=== PATIENT | male | born 1945 ===

== ENCOUNTER 2022-12-09 17:07 | Observation (INO) ==
--- NOTE | 2022-12-09 17:24 | ED Triage Note ---
Date of Service December 09, 2022 History of Present Illness This patient was briefly evaluated while in triage. An abbreviated physical exam was performed. This patient is a 77-year-old Male with past medical history of hypertension and hypercholesterolemia who presents to the ED for evaluation of confusion and mild dizziness that started at midday. reports the patient has also had some other coordination issues as well, for example opening jars. There is a family history of CVA, the patient has not had any prior neurologic history. The patient did leave the house to go to get something, however got lost. Family has not noticed any slurred speech. Patient has no recollection of history this morning. Physical Exam CONSTITUTIONAL: Healthy and well nourished. Patient is alert to current situation. HEENT: Normocephalic, atraumatic. RESPIRATORY: Clear to auscultation bilaterally with no wheezing, crackles, rhonchi or stridor. CARDIOVASCULAR: Regular rate and rhythm with no murmurs, rubs or gallops. INTEGUMENTARY: No rash or other significant dermatologic conditions noted. HEMATOLOGIC: No ecchymosis or petechiae. PSYCHIATRIC: Positive affect. NEUROLOGIC: No focal neurologic deficits noted. No ataxia with ambulation Initial orders for labs and / or imaging were placed and patient was placed in the waiting area until a bed is available. Please see further documentation for the full ED course.
[2022-12-09 18:12] LABS: Basophils # (auto) 0.05 K/uL (0-0.2); Basophils % (auto) 0.7 %; Eosinophils # (auto) 0.17 K/uL (0-0.50); Eosinophils % (auto) 2.4 %; Hematocrit (blood only) 41.1 % (42.0-52.0); Hemoglobin 13.6 g/dl (14.0-18.0); Immature Granulocytes # (auto) 0.01 K/uL (0.01-0.20); Immature Granulocytes % (auto) 0.1 %; Lymphocytes # (auto) 2.36 K/uL (1.2-3.4); Lymphocytes % (auto) 33.1 %; Mean Corpuscular Hemoglobin 29.2 pg (25.0-34.0); Mean Corpuscular Hgb Conc 33.1 g/dL (32.0-36.0); Mean Corpuscular Volume 88.4 fL (80.0-100.0); Mean Platelet Volume 9.1 fL (9.4-12.4); Monocytes # (auto) 0.48 K/uL (0.11-0.59); Monocytes % (auto) 6.7 %; Neutrophils # (auto) 4.06 K/uL (1.40-6.50); Platelet Count 329 K/uL (130-400); RDW Coefficient of Variation 12.9 % (11.5-14.5); RDW Standard Deviation 41.9 fL (36.4-46.3); Red Blood Count 4.65 M/uL (4.70-6.10); White Blood Count 7.13 K/ul (4.8-10.8)
[2022-12-09 19:04] LABS: Albumin Level 4.6 gm/dl (3.4-5.0); Bilirubin,Total 1.2 mg/dl (0.2-1.0); Magnesium 2.3 mg/dl (1.7-2.4); Potassium 4.3 mmol/L (3.5-5.1)
[2022-12-09 19:07] LABS: Albumin Globulin Ratio 1.5 (0.9-2); Globulin 3.1 gm/dl (2.5-4.0)
[2022-12-09 19:08] LABS: BUN Creatinine Ratio 12.8 (10-20); Creatinine Clr Calc Pharmacy 40.8 ml/min; Est GFR (African American) 64.4 ml/min; Est GFR (Non-African American) 55.6 ml/min; Total Protein 7.7 gm/dl (6.0-8.3)
--- NOTE | 2022-12-09 19:26 | CT Scan Report ---
CT SCAN OF THE BRAIN WITHOUT IV CONTRAST CLINICAL HISTORY: Change in mental status. COMPARISON STUDY: No priors. TECHNIQUE: Unenhanced axial CT scan of the brain is performed from the vertex to the skull base. A do se lowering technique was utilized adhering to the principles of ALARA. CT DOSE: 614.27 mGy.cm FINDINGS: Brain parenchyma: There is age-related involutional change noting moderate subcortical and periventri cular microangiopathic disease. There is no hemorrhage, mass effect, or evidence of acute territorial ischemia by CT criteria. Blanchard-white matter differentiation is preserved. No extra-axial fluid collec tion is seen. Ventricles, sulci, cisterns: Prominent secondary to involutional change. Intracranial vasculature: There is atherosclerotic calcification of the cavernous carotid and vertebr al arteries. Calvarium: Unremarkable. Sinuses and mastoids: The visualized paranasal sinuses are clear. There is trace right mastoid effusi on. The left mastoid air cells are well pneumatized. Orbits: The bony orbits are grossly intact. There are bilateral ocular lens implants. IMPRESSION: There is no hemorrhage, mass effect, or evidence of acute territorial ischemia by CT shimon dennis. ACT 112: Negative or not required by law. Electronically signed by: Ender Mills M.D. 12/09/2022 7:25 PM
[2022-12-09] MEDS: SODIUM CHLORIDE 0.9% 1000ML 1,000 ML IV SCH (20:22)
[2022-12-09] MEDS ORDERED: OPTIRAY 320 500ml IV ONE (20:28)
--- NOTE | 2022-12-09 20:41 | XRay Report ---
SINGLE VIEW CHEST CLINICAL HISTORY: Generalized weakness. FINDINGS: 2 AP, portable, upright chest radiographs are obtained. No prior studies are available for comparison at the time of dictation. The examination is degraded by portable technique and patient ro tation. A hiatal hernia is noted. The cardiomediastinal silhouette is top normal for projection. The lungs and pleural spaces are clear. No pneumothorax is seen. The skeletal structures are osteopenic. The bony thorax is grossly intact. IMPRESSION: No active disease in the chest. ACT 112: Negative or not required by law. Electronically signed by: Ender Mills M.D. 12/09/2022 8:40 PM
--- NOTE | 2022-12-09 21:04 | CT Scan Report ---
CT ANGIOGRAM OF THE BRAIN; CT ANGIOGRAM OF THE NECK CLINICAL HISTORY: Change in mental status. Stroke like symptoms. COMPARISON STUDY: Unenhanced CT of the brain performed the same day 12/09/2022. TECHNIQUE: Follow-up the IV administration of 109 of Optiray 320, CT angiogram of the head and neck w as performed from the aortic arch to the vertex. Images are reviewed in the axial, sagittal, and [place] nal planes. 3-D MIPS images are created and assessed. IV contrast was administered without complicati on. All measurements were calculated based on NASCET criteria. A dose lowering technique was utilize d adhering to the principles of ALARA. CT DOSE: 537.39 mGy.cm FINDINGS: Brain parenchyma: There is age related involutional change noting moderate subcortical and periventri cular microangiopathic disease. There is no evidence of hemorrhage, mass effect, or acute territorial ischemia noting angiographic phase technique. There is no evidence of enhancing mass lesion on the a ngiogram phase images. The ventricles, sulci, and cisterns are prominent secondary to involutional ch jackie. Blanchard-white matter differentiation is preserved. No extra-axial fluid collection is seen. Thoracic aorta: Visualized portions of the thoracic aorta are normal in caliber. The aortic arch demo nstrates standard 3-vessel anatomy. Right carotid arterial system: The right common carotid artery is widely patent, as are the right int ernal and external carotid arteries. Calcified plaque is noted in the carotid bulb. Left carotid arterial system: The left common carotid artery is widely patent, as are the left wedding planning internship al and external carotid arteries. Minimal calcified plaque is seen in the carotid bulb. Vertebral arteries: The vertebral arteries are widely patent bilaterally and codominant. Subclavian arteries: Widely patent bilaterally. Intracranial vasculature: There is atherosclerotic calcification of the cavernous carotid and vertebr al arteries. The internal carotid arteries are patent at the skull base, as are the anterior and midd le cerebral arteries bilaterally. The vertebrobasilar system and posterior cerebral arteries are wide ly patent. The vertebral arteries are codominant. There is no aneurysm, high-grade stenosis, or focal vessel cut off seen throughout the intracranial circulation. Jugular veins: Patent bilaterally. Dural sinuses: Patent. Lung apices: Partially visualized upper lobe lung parenchyma appears clear. Soft tissues: The visualized pharyngeal soft tissues are normal in appearance noting angiographic pha se technique. The oropharyngeal airway appears widely patent. The salivary and thyroid glands are nor mal in appearance. No cervical lymphadenopathy is seen. Skeletal structures: The skeletal structures are osteopenic. The calvarium appears intact. The cervic al spine is maintained noting multilevel spondylosis. No lytic or blastic lesion is seen. Orbits: The bony orbits are intact. Orbital contents are normal as visualized noting bilateral ocular lens implants. Sinuses and mastoids: The paranasal sinuses are clear. There is trace right mastoid effusion. The lef t mastoid air cells are well pneumatized. IMPRESSION: 1. There is no evidence of hemorrhage, mass effect, or acute territorial ischemia noting angiographic phase technique. 2. Unremarkable CT angiogram of the brain. 3. Unremarkable CT angiogram of the neck. ACT 112: Negative or not required by law. Electronically signed by: Ender Mills M.D. 12/09/2022 9:02 PM
--- NOTE | 2022-12-09 21:35 | Emergency Department Note ---
Impression & Plan Acute confusion, Memory loss ED Provider Note ED Provider Note NAME: KALA LOUIS AGE:77 SEX: Male : 1945 ARRIVES VIA: Private vehicle INFORMANT: Patient ED PROVIDER(s): Alysha Drake DO CHIEF COMPLAINT: Acute confusion and memory loss HPI: This is a 77-year-old male presents emerged part with at bedside due to acute confusion and memory loss that began earlier today around noon. No prior similar episodes. and patient state no other obvious signs of a stroke such as facial droop, slurred speech, limb weakness, or trouble walking. Patient denies noting any pain, headaches, dizziness, or change in appetite. No recent change in medications. 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 He states today he had gone out to buy his avendano and forgot where he was going and how to get there and so he turned around and came home. states he was upset by this episode. No prior similar events. No history of TIA/CVA. PAST MEDICAL HISTORY:See Below PAST SURGICAL HISTORY:See Below FAMILY HISTORY:See Below SOCIAL HISTORY:See Below HOME MEDICATIONS:See Below ALLERGIES:See Below VITALS:See Below PHYSICAL EXAMINATION: GENERAL: alert, well appearing, well nourished, no distress, non-toxic EYE EXAM: normal conjunctiva, PERRL and EOM's grossly intact OROPHARYNX: no exudate, no erythema, lips, buccal mucosa, and tongue normal and mucous membranes are moist NECK: supple, no nuchal rigidity, no adenopathy, non-tender LUNGS: Clear to auscultation. Normal chest wall mechanics, no w/r/r HEART: no murmurs, S1 normal and S2 normal ABDOMEN: abdomen soft, non-tender, normo-active bowel sounds, no masses, no rebound or guarding. BACK: Back is symmetrical on inspection and there is no deformity, no midline tenderness, no CVA tenderness. SKIN: no rashes, petechiae, orbruising UPPER EXTREMITIES: upper extremities are grossly normal. FROM, nml pulses b/l. LOWER EXTREMITIES: No pitting edema. FROM, nml pulses b/l. NEURO EXAM: Normal sensorium but confusion to recent chronology of events, cranial nerves II-XII grossly intact, normal speech, no facial droop,nogross weakness of arms, no gross weakness of legs. Gross sensation intact. No ataxia. Vital Signs: reviewed and remarkable Differential Diagnosis: CVA, TIA, occult infection, JIAN, dehydration, trauma, electrolyte abnormality, ACS, dysrhythmia, TGA, medication adr, as well as others were considered MEDICAL DECISION MAKING: This is a 77 yo male who presents due to acute confusion and memory loss. Protocol orders started by nursing staff while patient still in triage. Once I evaluated the patient in a room, additional labs and imaging were added. He was afebrile and VS stable. CT/CTA reassuring as were labs. These were discussed with the patient and at bedside. GIven patient still confused, and concern for neurologic event not otherwise seen on CT, we discussed additional inpatient evaluation. No ectopy or dysrhythmia noted on tele. No evidence of occult infection. No worsening or evolving symptoms. CAse discussed with hospitalist. Consultation(s): 2149: DIscussed with Dr. Knight. ER Treatment Provided: See below Diagnostics Interpreted By Me: -ECG: NSR at 94, nml axis, nml intervals, no acute ST/T wave changes. -Cardiac Monitoring: An order was placed for continuous cardiac monitoring. The monitor shows a rate of 97 with normal sinus rhythm. -Laboratory studies: As stated above and show below. -Imaging studies: [] Triage Nursing Note Reviewed Prior/Outside Records Reviewed Procedures: [] Critical Care: [] Past Med/Surg History Medical History (Updated 12/10/22 @ 14:35 by Alysha Drake DO) Dyslipidemia Hypertension Pre-diabetes Surgical History (Updated 12/10/22 @ 07:59 by Regan Almeida MD) History of cataract surgery Family History (Updated 12/10/22 @ 09:23 by Regan Almeida MD) Mother , age 86 with dementia Stroke Dementia Father , age 66 of heart disease Coronary heart disease Heart disease Social History Smoking Status: Former smoker Tobacco Type: Cigarettes Age Started Using Tobacco: 18; Age Quit Using Tobacco: 33; packs per day: 1; Second Hand Exposure: No; Hx Alcohol Use: No Hx Substance Use: No Preferred Language: Prydeinig Communication Ability: Effective Frameman Required: Yes Beliefs That Will Affect Care: None Current Living Situation: Spouse Current Living Situation Comment: lives in a one story home current occupational status: retired 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 Feels Safe at Home: Yes Assistive Devices: None Allergies Allergies Allergy/AdvReac Type Severity Reaction Status Date / Time lisinopril Allergy FACE EDEMA Verified 12/10/22 01:16 Home Meds Home Medications Medication Instructions Recorded Confirmed amlodipine 10 mg tablet 10 mg PO DAILY 12/09/22 12/09/22 simvastatin 20 mg tablet 20 mg PO DAILY 12/09/22 12/09/22 Previous Rx's Medication Instructions Recorded clopidogrel 75 mg tablet 75 mg PO DAILY #30 tabs 12/10/22 Results & Data (ED) Vital Signs Vital Signs - 24 hr 12/09/22 17:20 12/09/22 19:48 12/09/22 19:48 Temperature 36.4 C L Temperature Source Temporal Artery Scan Pulse Rate 109 H Pulse Rate [Apical] 96 H Pulse Rhythm Regular Respiratory Rate 16 16 Respiratory Effort / Characteristics Non-Labored Spontaneous Respiratory Depth Normal Blood Pressure 120/82 Blood Pressure [Right Arm] 144/92 H Blood Pressure Mean 94 Blood Pressure Mean [Right Arm] 109 Pulse Oximetry 97 98 Oxygen Delivery Method Room Air Room Air Sepsis Recent Fever Within 48 Hours No Sepsis New/Unexplained Change in Mental Status No Sepsis Action Taken by Nursing No Action Required 12/09/22 20:24 12/09/22 20:24 12/09/22 22:05 Temperature Temperature Source Pulse Rate Pulse Rate [Apical] 79 81 Pulse Rhythm Respiratory Rate 20 20 Respiratory Effort / Characteristics Non-Labored Respiratory Depth Normal Blood Pressure Blood Pressure [Right Arm] 147/95 H 136/86 Blood Pressure Mean Blood Pressure Mean [Right Arm] 112 102 Pulse Oximetry 97 97 Oxygen Delivery Method Room Air Room Air Room Air Sepsis Recent Fever Within 48 Hours Sepsis New/Unexplained Change in Mental Status Sepsis Action Taken by Nursing Laboratory Data 12/09/22 17:40 12/09/22 17:40 Lab Results 12/09/22 12/09/22 12/09/22 Range/Units 17:40 17:40 17:40 WBC 7.13 (4.8-10.8) K/ul RBC 4.65 L (4.70-6.10) M/uL Hgb 13.6 L (14.0-18.0) g/dl Hct 41.1 L (42.0-52.0) % MCV 88.4 (80.0-100.0) fL MCH 29.2 (25.0-34.0) pg MCHC 33.1 (32.0-36.0) g/dL RDW Std Deviation 41.9 (36.4-46.3) fL RDW Coeff of Best 12.9 (11.5-14.5) % Plt Count 329 (130-400) K/uL MPV 9.1 L (9.4-12.4) fL Immature Gran % (Auto) 0.1 % Neut % (Auto) 57.0 % Lymph % (Auto) 33.1 % Upton % (Auto) 6.7 % Eos % (Auto) 2.4 % Baso % (Auto) 0.7 % Neut # (Auto) 4.06 (1.40-6.50) K/uL Lymph # (Auto) 2.36 (1.2-3.4) K/uL Upton # (Auto) 0.48 (0.11-0.59) K/uL Eos # (Auto) 0.17 (0-0.50) K/uL Baso # (Auto) 0.05 (0-0.2) K/uL Immature Gran # (Auto) 0.01 (0.01-0.20) K/uL PT Cancelled INR Cancelled Sodium 141 (136-145) mmol/L Potassium 4.3 (3.5-5.1) mmol/L Chloride 105 (98-107) mmol/L Carbon Dioxide 29 (21-32) mmol/L Anion Gap 7 (3-11) BUN 16 (6-23) mg/dl Creatinine 1.25 (0.6-1.4) mg/dl Est Cr Clr Drug Dosing 40.8 ml/min Est GFR ( Amer) 64.4 ml/min Est GFR (Non-Af Amer) 55.6 ml/min BUN/Creatinine Ratio 12.8 (10-20) Glucose 111 H (70-99(Fasting)) mg/dl Calcium 10.0 (8.5-10.1) mg/dl Magnesium 2.3 (1.7-2.4) mg/dl Total Bilirubin 1.2 H (0.2-1.0) mg/dl AST 21 (13-39) U/L ALT 11 (7-52) U/L Alkaline Phosphatase 80 (34-104) U/L Troponin I High Sens (0-20) pg/ml Total Protein 7.7 (6.0-8.3) gm/dl Albumin 4.6 (3.4-5.0) gm/dl Globulin 3.1 (2.5-4.0) gm/dl Albumin/Globulin Ratio 1.5 (0.9-2) TSH (0.300-4.500) uIu/ml Urine Color Urine Appearance (Clear) Urine pH (4.5-7.5) Ur Specific Robson (1.000-1.030) Urine Protein (Negative) Urine Glucose (UA) (Negative) Urine Ketones (Negative) Urine Blood (Negative) Urine Nitrite (Negative) Urine Bilirubin (Negative) Urine Urobilinogen (Negative) Ur Leukocyte Esterase (Negative) Lyme Disease IgG Ab (Negative) Lyme Disease IgM Ab (Negative) SARS-CoV-2, RNA, NAAT (NEGATIVE) 12/09/22 12/09/22 12/09/22 Range/Units 17:40 17:40 17:40 WBC (4.8-10.8) K/ul RBC (4.70-6.10) M/uL Hgb (14.0-18.0) g/dl Hct (42.0-52.0) % MCV (80.0-100.0) fL MCH (25.0-34.0) pg MCHC (32.0-36.0) g/dL RDW Std Deviation (36.4-46.3) fL RDW Coeff of Best (11.5-14.5) % Plt Count (130-400) K/uL MPV (9.4-12.4) fL Immature Gran % (Auto) % Neut % (Auto) % Lymph % (Auto) % Upton % (Auto) % Eos % (Auto) % Baso % (Auto) % Neut # (Auto) (1.40-6.50) K/uL Lymph # (Auto) (1.2-3.4) K/uL Upton # (Auto) (0.11-0.59) K/uL Eos # (Auto) (0-0.50) K/uL Baso # (Auto) (0-0.2) K/uL Immature Gran # (Auto) (0.01-0.20) K/uL PT INR Sodium (136-145) mmol/L Potassium (3.5-5.1) mmol/L Chloride (98-107) mmol/L Carbon Dioxide (21-32) mmol/L Anion Gap (3-11) BUN (6-23) mg/dl Creatinine (0.6-1.4) mg/dl Est Cr Clr Drug Dosing ml/min Est GFR ( Amer) ml/min Est GFR (Non-Af Amer) ml/min BUN/Creatinine Ratio (10-20) Glucose (70-99(Fasting)) mg/dl Calcium (8.5-10.1) mg/dl Magnesium (1.7-2.4) mg/dl Total Bilirubin (0.2-1.0) mg/dl AST (13-39) U/L ALT (7-52) U/L Alkaline Phosphatase (34-104) U/L Troponin I High Sens 4.8 (0-20) pg/ml Total Protein (6.0-8.3) gm/dl Albumin (3.4-5.0) gm/dl Globulin (2.5-4.0) gm/dl Albumin/Globulin Ratio (0.9-2) TSH 1.718 (0.300-4.500) uIu/ml Urine Color Urine Appearance (Clear) Urine pH (4.5-7.5) Ur Specific Robson (1.000-1.030) Urine Protein (Negative) Urine Glucose (UA) (Negative) Urine Ketones (Negative) Urine Blood (Negative) Urine Nitrite (Negative) Urine Bilirubin (Negative) Urine Urobilinogen (Negative) Ur Leukocyte Esterase (Negative) Lyme Disease IgG Ab Negative (Negative) Lyme Disease IgM Ab Negative (Negative) SARS-CoV-2, RNA, NAAT (NEGATIVE) 12/09/22 12/09/22 12/09/22 Range/Units 21:01 21:40 22:03 WBC (4.8-10.8) K/ul RBC (4.70-6.10) M/uL Hgb (14.0-18.0) g/dl Hct (42.0-52.0) % MCV (80.0-100.0) fL MCH (25.0-34.0) pg MCHC (32.0-36.0) g/dL RDW Std Deviation (36.4-46.3) fL RDW Coeff of Best (11.5-14.5) % Plt Count (130-400) K/uL MPV (9.4-12.4) fL Immature Gran % (Auto) % Neut % (Auto) % Lymph % (Auto) % Upton % (Auto) % Eos % (Auto) % Baso % (Auto) % Neut # (Auto) (1.40-6.50) K/uL Lymph # (Auto) (1.2-3.4) K/uL Upton # (Auto) (0.11-0.59) K/uL Eos # (Auto) (0-0.50) K/uL Baso # (Auto) (0-0.2) K/uL Immature Gran # (Auto) (0.01-0.20) K/uL PT 11.3 INR 1.1 Sodium (136-145) mmol/L Potassium (3.5-5.1) mmol/L Chloride (98-107) mmol/L Carbon Dioxide (21-32) mmol/L Anion Gap (3-11) BUN (6-23) mg/dl Creatinine (0.6-1.4) mg/dl Est Cr Clr Drug Dosing ml/min Est GFR ( Amer) ml/min Est GFR (Non-Af Amer) ml/min BUN/Creatinine Ratio (10-20) Glucose (70-99(Fasting)) mg/dl Calcium (8.5-10.1) mg/dl Magnesium (1.7-2.4) mg/dl Total Bilirubin (0.2-1.0) mg/dl AST (13-39) U/L ALT (7-52) U/L Alkaline Phosphatase (34-104) U/L Troponin I High Sens (0-20) pg/ml Total Protein (6.0-8.3) gm/dl Albumin (3.4-5.0) gm/dl Globulin (2.5-4.0) gm/dl Albumin/Globulin Ratio (0.9-2) TSH (0.300-4.500) uIu/ml Urine Color Yellow Urine Appearance Clear (Clear) Urine pH 7.5 (4.5-7.5) Ur Specific Robson 1.032 H (1.000-1.030) Urine Protein Negative (Negative) Urine Glucose (UA) Negative (Negative) Urine Ketones Negative (Negative) Urine Blood Negative (Negative) Urine Nitrite Negative (Negative) Urine Bilirubin Negative (Negative) Urine Urobilinogen Negative (Negative) Ur Leukocyte Esterase Negative (Negative) Lyme Disease IgG Ab (Negative) Lyme Disease IgM Ab (Negative) SARS-CoV-2, RNA, NAAT NEGATIVE (NEGATIVE) Administered Medications Discontinued Medications Amlodipine Besylate (Amlodipine Besylate 5 Mg Tab) 10 mg PO DAILY DULCE Stop: 01/09/23 08:59 Last Admin: 12/10/22 08:53 Dose: 10 mg Documented By: GIANLUCA Aspirin (Aspirin Chew 324 Mg) 324 mg PO NOW STA Stop: 12/09/22 21:54 Last Admin: 12/09/22 22:04 Dose: 324 mg Documented By: CAMMIE Aspirin (Aspirin 81 Mg Ectab) 81 mg PO DAILY DULCE Stop: 01/09/23 08:59 Last Admin: 12/10/22 08:53 Dose: 81 mg Documented By: GIANLUCA Heparin Sodium (Porcine) (Heparin Sod 5,000 Unit/0.5 Ml Vial) 5,000 units SQ Q8 DULCE Stop: 01/09/23 05:59 Last Admin: 12/10/22 06:03 Dose: Not Given Documented By: MINDY Sodium Chloride (Nss 1000ml) 1,000 mls @ 125 mls/hr IV .Q8H [facility] Stop: 01/08/23 20:14 Last Infusion: 12/10/22 06:03 Dose: 0 mls/hr Documented By: Admin: 12/10/22 06:02 Dose: Not Given Documented By: Admin: 12/09/22 20:22 Dose: 125 mls/hr Documented By: CAMMIE Influenza Virus Vaccine (Influenza Vaccine High Dose Pf 65+ 0.7 Ml Syr) 0.7 ml IM .ONCE ONE Stop: 12/10/22 09:01 Last Admin: 12/10/22 10:26 Dose: Not Given Documented By: GIANLUCA Ioversol (Optiray 320 500ml) 109 ml IV ONCE ONE Stop: 12/09/22 20:29 Last Admin: 12/09/22 20:30 Dose: 109 ml Documented By: JUANY Simvastatin (Simvastatin 20 Mg Tab) 20 mg PO DAILY [facility] Stop: 01/09/23 08:59 Last Admin: 12/10/22 08:53 Dose: 20 mg Documented By: CB Imaging Data Radiologist's Impression: Chest X-Ray 12/09/22 17:24 SINGLE VIEW CHEST CLINICAL HISTORY: Generalized weakness. FINDINGS: 2 AP, portable, upright chest radiographs are obtained. No prior studies are available for comparison at the time of dictation. The examination is degraded by portable technique and patient rotation. A hiatal hernia is noted. The cardiomediastinal silhouette is top normal for projection. The lungs and pleural spaces are clear. No pneumothorax is seen. The skeletal structures are osteopenic. The bony thorax is grossly intact. IMPRESSION: No active disease in the chest. ACT 112: Negative or not required by law. Electronically signed by: Ender Mills M.D. 12/09/2022 8:[address] 12/09/22 17:24 CT SCAN OF THE BRAIN WITHOUT IV CONTRAST CLINICAL HISTORY: Change in mental status. COMPARISON STUDY: No priors. TECHNIQUE: Unenhanced axial CT scan of the brain is performed from the vertex to the skull base. A dose lowering technique was utilized adhering to the pr inciples of ALA. CT DOSE: 614.27 mGy.cm FINDINGS: Brain parenchyma: There is age-related involutional change noting moderate subcortical and periventricular microangiopathic disease. There is no hemorrhage, mass effect, or evidence of acute territorial ischemia by CT criteria. Blanchard-white matter differentiation is preserved. No extra-axial fluid collection is seen. Ventricles, sulci, cisterns: Prominent secondary to involutional change. Intracranial vasculature: There is atherosclerotic calcification of the cavernous carotid and vertebral arteries. Calvarium: Unremarkable. Sinuses and mastoids: The visualized paranasal sinuses are clear. There is trace right mastoid effusion. The left mastoid air cells are well pneumatized. Orbits: The bony orbits are grossly intact. There are bilateral ocular lens implants. IMPRESSION: There is no hemorrhage, mass effect, or evidence of acute territorial ischemia by CT criteria. ACT 112: Negative or not required by law. Electronically signed by: Ender Mills M.D. 12/09/2022 7:25 PM Head CTA 12/09/22 20:12 CT ANGIOGRAM OF THE BRAIN; CT ANGIOGRAM OF THE NECK CLINICAL HISTORY: Change in mental status. Stroke like symptoms. COMPARISON STUDY: Unenhanced CT of the brain performed the same day 12/09/2022. TECHNIQUE: Follow-up the IV administration of 109 of Optiray 320, CT angiogram of the head and neck was performed from the aortic arch to the vertex. Images are reviewed in the axial, sagittal, and coronal planes. 3-D MIPS images are created and assessed. IV contrast was administered without complication. All measurements were calculated based on NASCET criteria. A dose lowering technique was utilized adhering to the principles of ALARA. CT DOSE: 537.39 mGy.cm FINDINGS: Brain parenchyma: There is age related involutional change noting moderate subcortical and periventricular microangiopathic disease. There is no evidence of hemorrhage, mass effect, or acute territorial ischemia noting angiographic phase technique. There is no evidence of enhancing mass lesion on the angiogram phase images. The ventricles, sulci, and cisterns are prominent secondary to in volutional change. Blanchard-white matter differentiation is preserved. No extra- axial fluid collection is seen. Thoracic aorta: Visualized portions of the thoracic aorta are normal in caliber. The aortic arch demonstrates standard 3-vessel anatomy. Right carotid arterial system: The right common carotid artery is widely patent, as are the right internal and external carotid arteries. Calcified plaque is noted in the carotid bulb. Left carotid arterial system: The left common carotid artery is widely patent, as are the left internal and external carotid arteries. Minimal calcified plaque is seen in the carotid bulb. Vertebral arteries: The vertebral arteries are widely patent bilaterally and codominant. Subclavian arteries: Widely patent bilaterally. Intracranial vasculature: There is atherosclerotic calcification of the cavernous carotid and vertebral arteries. The internal carotid arteries are patent at the skull base, as are the anterior and middle cerebral arteries bilaterally. The vertebrobasilar system and posterior cerebral arteries are widely patent. The vertebral arteries are codominant. There is no aneurysm, high-grade stenosis, or focal vessel cut off seen throughout the intracranial circulation. Jugular veins: Patent bilaterally. Dural sinuses: Patent. Lung apices: Partially visualized upper lobe lung parenchyma appears clear. Soft tissues: The visualized pharyngeal soft tissues are normal in appearance noting angiographic phase technique. The oropharyngeal airway appears widely patent. The salivary and thyroid glands are normal in appearance. No cervical lymphadenopathy is seen. Skeletal structures: The skeletal structures are osteopenic. The calvarium appears intact. The cervical spine is maintained noting multilevel spondylosis. No lytic or blastic lesion is seen. Orbits: The bony orbits are intact. Orbital contents are normal as visualized noting bilateral ocular lens implants. Sinuses and mastoids: The paranasal sinuses are clear. There is trace right mastoid effusion. The left mastoid air cells are well pneumatized. IMPRESSION: 1. There is no evidence of hemorrhage, mass effect, or acute territorial ischemia noting angiographic phase technique. 2. Unremarkable CT angiogram of the brain. 3. Unremarkable CT angiogram of the neck. ACT 112: Negative or not required by law. Electronically signed by: Ender Mills M.D. 12/09/2022 9:02 PM Neck CTA 12/09/22 20:12 CT ANGIOGRAM OF THE BRAIN; CT ANGIOGRAM OF THE NECK CLINICAL HISTORY: Change in mental status. Stroke like symptoms. COMPARISON STUDY: Unenhanced CT of the brain performed the same day 12/09/2022. TECHNIQUE: Follow-up the IV administration of 109 of Optiray 320, CT angiogram of the head and neck was performed from the aortic arch to the vertex. Images are reviewed in the axial, sagittal, and coronal planes. 3-D MIPS images are created and assessed. IV contrast was administered without complication. All measurements were calculated based on NASCET criteria. A dose lowering te chnique was utilized adhering to the principles of ALARA. CT DOSE: 537.39 mGy.cm FINDINGS: Brain parenchyma: There is age related involutional change noting moderate subcortical and periventricular microangiopathic disease. There is no evidence of hemorrhage, mass effect, or acute territorial ischemia noting angiographic phase technique. There is no evidence of enhancing mass lesion on the angiogram phase images. The ventricles, sulci, and cisterns are prominent secondary to involutional change. Blanchard-white matter differentiation is preserved. No extra- axial fluid collection is seen. Thoracic aorta: Visualized portions of the thoracic aorta are normal in caliber. The aortic arch demonstrates standard 3-vessel anatomy. Right carotid arterial system: The right common carotid artery is widely patent, as are the right internal and external carotid arteries. Calcified plaque is noted in the carotid bulb. Left carotid arterial system: The left common carotid artery is widely patent, as are the left internal and external carotid arteries. Minimal calcified plaque is seen in the carotid bulb. Vertebral arteries: The vertebral arteries are widely patent bilaterally and codominant. Subclavian arteries: Widely patent bilaterally. Intracranial vasculature: There is atherosclerotic calcification of the cavernous carotid and vertebral arteries. The internal carotid arteries are patent at the skull base, as are the anterior and middle cerebral arteries bilat erally. The vertebrobasilar system and posterior cerebral arteries are widely patent. The vertebral arteries are codominant. There is no aneurysm, high-grade stenosis, or focal vessel cut off seen throughout the intracranial circulation. Jugular veins: Patent bilaterally. Dural sinuses: Patent. Lung apices: Partially visualized upper lobe lung parenchyma appears clear. Soft tissues: The visualized pharyngeal soft tissues are normal in appearance noting angiographic phase technique. The oropharyngeal airway appears widely patent. The salivary and thyroid glands are normal in appearance. No cervical lymphadenopathy is seen. Skeletal structures: The skeletal structures are osteopenic. The calvarium appears intact. The cervical spine is maintained noting multilevel spondylosis. No lytic or blastic lesion is seen. Orbits: The bony orbits are intact. Orbital contents are normal as visualized noting bilateral ocular lens implants. Sinuses and mastoids: The paranasal sinuses are clear. There is trace right mast oid effusion. The left mastoid air cells are well pneumatized. IMPRESSION: 1. There is no evidence of hemorrhage, mass effect, or acute territorial ischemia noting angiographic phase technique. 2. Unremarkable CT angiogram of the brain. 3. Unremarkable CT angiogram of the neck. ACT 112: Negative or not required by law. Electronically signed by: Ender Mills M.D. 12/09/2022 9:02 PM Discharge Plan Visit Data Chief Complaint: Neuro Symptoms/Deficit Stated Complaint: DIZZY, CONFUSION, ED Provider: Alysha Drake Discharge Problem: Acute confusion, Memory loss Patient Disposition: Admitted As Inpatient Condition: Good Discharge Instructions Interventions: ED Discharge Assessment Last Done: 12/10/22 01:37
[2022-12-09 21:45] LABS: INR 1.1 (0.9-1.1); Prothrombin Time 11.3 Seconds (9.0-12.0)
[2022-12-09] MEDS ORDERED: ASPIRIN CHEW 324 MG PO STA (21:53)
[2022-12-09 22:05] LABS: Appearance Urine Clear (Clear); Bilirubin Urine Negative (Negative); Blood Urine Negative (Negative); Color Urine Yellow; Glucose Urine UA Negative (Negative); Ketones Urine Negative (Negative); Leukocyte Esterase Urine Negative (Negative); Nitrite Urine Negative (Negative); Protein Urine Negative (Negative); Specific Gravity Urine 1.032 (1.000-1.030); Urobilinogen Urine Negative (Negative); pH Urine 7.5 (4.5-7.5)
--- NOTE | 2022-12-09 23:28 | History & Physical Report ---
Date of Service December 09, 2022 Assessment & Plan (1) Acute confusion: Plan: Episodic short-term memory impairment Patient currently mentating well on my exam. Rule out CVA, seizures hypertension, slightly elevated hyperlipidemia on statin Rx prediabetes, hemoglobin A1c of 5.9 last July 2022 chronic anemia (baseline hemoglobin of 12 from 2021 outpatient records which patient is unaware of), hemoglobin better than baseline past tobacco/alcohol abuse as per patient OBS Medical telemetry MRI brain, EEG for additional work-up Neurology consult Re: Acute onset short-term memory impairment DVT prophylaxis per Lovenox subcu DNR Patient requesting updates from providers. Ms. Sirena Wang, contact #[phone]. Text document was generated using Gluster voice recognition software. It may contain grammatical or spelling errors. Kindly contact undersigned for clarification of any documentation item in question. History of Present Illness Chief Complaint: Confused, forgetful Primary Care Provider: Michael Olivia MD History obtained from patient, family, and records. Medical history significant for hypertension, hyperlipidemia, prediabetes, chronic anemia (baseline hemoglobin of 12 from 2021 ), past tobacco/alcohol abuse as per patient. Patient noted to be forgetful and confused yesterday. Patient got lost going to the [employer] to get a sink strainer as per . He forgot a visit from a kitchen line installer trolley at their home in early a.m. No headache, no chest pain, no SOB. Episode of forgetfulness in April, while preparing to move from [place] to [place] which attributed to the stress of moving. Patient brought to the ER for evaluation. 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 Allergies Allergy/AdvReac Type Severity Reaction Status Date / Time lisinopril Allergy FACE EDEMA Verified 12/10/22 01:16 Home Medications Medication Instructions Recorded Confirmed Type amlodipine 10 mg tablet 10 mg PO DAILY 12/09/22 12/09/22 History simvastatin 20 mg tablet 20 mg PO DAILY 12/09/22 12/09/22 History aspirin 81 mg tablet,delayed 81 mg PO DAILY 12/10/22 12/10/22 History release Past Med/Surg History Medical History (Updated 12/10/22 @ 09:26 by Regan Almeida MD) Dyslipidemia Hypertension Pre-diabetes Surgical History (Updated 12/10/22 @ 07:59 by Regan Almeida MD) History of cataract surgery Family History (Updated 12/10/22 @ 09:23 by Regan Almeida MD) Mother , age 86 with dementia Stroke Dementia Father , age 66 of heart disease Coronary heart disease Heart disease Social History Smoking Status: Former smoker Tobacco Type: Cigarettes Age Started Using Tobacco: 18; Age Quit Using Tobacco: 33; packs per day: 1; Smoking End Date: 1977; Second Hand Exposure: No; Do You Dip or Chew Tobacco: No; Tobacco Cessation Education Requested by Patient: No Hx Alcohol Use: No Hx Substance Use: No Preferred Language: [place] Communication Ability: Effective Suede Cleaner Required: Yes Beliefs That Will Affect Care: None Current Living Situation: Spouse Current Living Situation Comment: lives in a one story home current occupational status: retired 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 Other Information That Helps Us Care for You: No Feels Safe at Home: Yes Safety Concerns: Feels Safe At This Time Assistive Devices: None Review of Systems Review of Systems: As per HPI, all other systems reviewed and negative Physical Exam Physical Exam: GENERAL: Comfortable, no respiratory distress SKIN: Pallor, warm HEENT: Bespectacled, pale palpebral conjunctivae, no ptosis, dry buccal mucosa NECK : Supple, no tenderness CHEST : CTA, no tenderness HEART : RRR, no obvious murmurs ABDOMEN: Some distention, nontender EXTREMITIES : No LE swelling/tenderness, no other conspicuous deformities noted NEUROLOGIC : Coherent, no facial asymmetry, no other gross focality Results & Data Results & Data ([facility]) Vital Signs (Past 12 Hours) Vital Signs Temp Pulse Pulse Resp BP BP Pulse Ox 12/09/22 22:05 81 20 136/86 97 12/09/22 20:24 79 20 147/95 H 97 12/09/22 20:24 12/09/22 19:48 12/09/22 19:48 96 H 16 144/92 H 98 12/09/22 17:20 36.4 C L 109 H 16 120/82 97 O2 Del Method 12/09/22 22:05 Room Air 12/09/22 20:24 Room Air 12/09/22 20:24 Room Air 12/09/22 19:48 Room Air 12/09/22 19:48 12/09/22 17:20 Room Air Laboratory Results Laboratory Results WBC 7.13 K/ul (4.8-10.8) 12/09/22 17:40 RBC 4.65 M/uL (4.70-6.10) L 12/09/22 17:40 Hgb 13.6 g/dl (14.0-18.0) L 12/09/22 17:40 Hct 41.1 % (42.0-52.0) L 12/09/22 17:40 MCV 88.4 fL (80.0-100.0) 12/09/22 17:40 MCH 29.2 pg (25.0-34.0) 12/09/22 17:40 MCHC 33.1 g/dL (32.0-36.0) 12/09/22 17:40 RDW Std Deviation 41.9 fL (36.4-46.3) 12/09/22 17:40 RDW Coeff of Best 12.9 % (11.5-14.5) 12/09/22 17:40 Plt Count 329 K/uL (130-400) 12/09/22 17:40 MPV 9.1 fL (9.4-12.4) L 12/09/22 17:40 Immature Gran % (Auto) 0.1 % 12/09/22 17:40 Neut % (Auto) 57.0 % 12/09/22 17:40 Lymph % (Auto) 33.1 % 12/09/22 17:40 [place] % (Auto) 6.7 % 12/09/22 17:40 Eos % (Auto) 2.4 % 12/09/22 17:40 Baso % (Auto) 0.7 % 12/09/22 17:40 Neut # (Auto) 4.06 K/uL (1.40-6.50) 12/09/22 17:40 Lymph # (Auto) 2.36 K/uL (1.2-3.4) 12/09/22 17:40 [place] # (Auto) 0.48 K/uL (0.11-0.59) 12/09/22 17:40 Eos # (Auto) 0.17 K/uL (0-0.50) 02/13/23 17:40 Baso # (Auto) 0.05 K/uL (0-0.2) 12/09/22 17:40 Immature Gran # (Auto) 0.01 K/uL (0.01-0.20) 12/09/22 17:40 PT 11.3 Seconds (9.0-12.0) 12/09/22 21:01 INR 1.1 (0.9-1.1) 12/09/22 21:01 Sodium 141 mmol/L (136-145) 12/09/22 17:40 Potassium 4.3 mmol/L (3.5-5.1) 12/09/22 17:40 Chloride 105 mmol/L (98-107) 12/09/22 17:40 Carbon Dioxide 29 mmol/L (21-32) 12/09/22 17:40 Anion Gap 7 (3-11) 12/09/22 17:40 BUN 16 mg/dl (6-23) 12/09/22 17:40 Creatinine 1.25 mg/dl (0.6-1.4) 12/09/22 17:40 Est Cr Clr Drug Dosing 40.8 ml/min 12/09/22 17:40 Est GFR ( Amer) 64.4 ml/min 12/09/22 17:40 Est GFR (Non-Af Amer) 55.6 ml/min 12/09/22 17:40 BUN/Creatinine Ratio 12.8 (10-20) 12/09/22 17:40 Glucose 111 mg/dl (70-99(Fasting)) H 12/09/22 17:40 Calcium 10.0 mg/dl (8.5-10.1) 12/09/22 17:40 Magnesium 2.3 mg/dl (1.7-2.4) 12/09/22 17:40 Total Bilirubin 1.2 mg/dl (0.2-1.0) H 12/09/22 17:40 AST 21 U/L (13-39) 12/09/22 17:40 ALT 11 U/L (7-52) 12/09/22 17:40 Alkaline Phosphatase 80 U/L (34-104) 12/09/22 17:40 Troponin I High Sens 4.8 pg/ml (0-20) 12/09/22 17:40 Total Protein 7.7 gm/dl (6.0-8.3) 12/09/22 17:40 Albumin 4.6 gm/dl (3.4-5.0) 12/09/22 17:40 Globulin 3.1 gm/dl (2.5-4.0) 12/09/22 17:40 Albumin/Globulin Ratio 1.5 (0.9-2) 12/09/22 17:40 TSH 1.718 uIu/ml (0.300-4.500) 12/09/22 17:40 Urine Color Yellow 12/09/22 21:40 Urine Appearance Clear (Clear) 12/09/22 21:40 Urine pH 7.5 (4.5-7.5) 12/09/22 21:40 Ur Specific [place] 1.032 (1.000-1.030) H 12/09/22 21:40 Urine Protein Negative (Negative) 12/09/22 21:40 Urine Glucose (UA) Negative (Negative) 12/09/22 21:40 Urine Ketones Negative (Negative) 12/09/22 21:40 Urine Blood Negative (Negative) 12/09/22 21:40 Urine Nitrite Negative (Negative) 12/09/22 21:40 Urine Bilirubin Negative (Negative) 12/09/22 21:40 Urine Urobilinogen Negative (Negative) 12/09/22 21:40 Ur Leukocyte Esterase Negative (Negative) 12/09/22 21:40 SARS-CoV-2, RNA, NAAT NEGATIVE (NEGATIVE) 12/09/22 22:03 Impressions Chest X-Ray 12/09/22 17:24 SINGLE VIEW CHEST CLINICAL HISTORY: Generalized weakness. FINDINGS: 2 AP, portable, upright chest radiographs are obtained. No prior studies are available for comparison at the time of dictation. The examination is degraded by portable technique and patient rotation. A hiatal hernia is noted. The cardiomediastinal silhouette is top normal for projection. The lungs and pleural spaces are clear. No pneumothorax is seen. The skeletal structures are osteopenic. The bony thorax is grossly intact. IMPRESSION: No active disease in the chest. ACT 112: Negative or not required by law. Electronically signed by: Ender Mills M.D. 12/09/2022 8:[address] 12/09/22 17:24 CT SCAN OF THE BRAIN WITHOUT IV CONTRAST CLINICAL HISTORY: Change in mental status. COMPARISON STUDY: No priors. TECHNIQUE: Unenhanced axial CT scan of the brain is performed from the vertex to the skull base. A dose lowering technique was utilized adhering to the princi ples of ALARA. CT DOSE: 614.27 mGy.cm FINDINGS: Brain parenchyma: There is age-related involutional change noting moderate subcortical and periventricular microangiopathic disease. There is no hemorrhage, mass effect, or evidence of acute territorial ischemia by CT criteria. Blanchard-white matter differentiation is preserved. No extra-axial fluid collection is seen. Ventricles, sulci, cisterns: Prominent secondary to involutional change. Intracranial vasculature: There is atherosclerotic calcification of the cavernous carotid and vertebral arteries. Calvarium: Unremarkable. Sinuses and mastoids: The visualized paranasal sinuses are clear. There is trace right mastoid effusion. The left mastoid air cells are well pneumatized. Orbits: The bony orbits are grossly intact. There are bilateral ocular lens implants. IMPRESSION: There is no hemorrhage, mass effect, or evidence of acute territorial ischemia by CT criteria. ACT 112: Negative or not required by law. Electronically signed by: Ender Mills M.D. 12/09/2022 7:25 PM Head CTA 12/09/22 20:12 CT ANGIOGRAM OF THE BRAIN; CT ANGIOGRAM OF THE NECK CLINICAL HISTORY: Change in mental status. Stroke like symptoms. COMPARISON STUDY: Unenhanced CT of the brain performed the same day 12/09/2022. TECHNIQUE: Follow-up the IV administration of 109 of Optiray 320, CT angiogram o f the head and neck was performed from the aortic arch to the vertex. Images are reviewed in the axial, sagittal, and coronal planes. 3-D MIPS images are created and assessed. IV contrast was administered without complication. All measurements were calculated based on NASCET criteria. A dose lowering technique was utilized adhering to the principles of ALARA. CT DOSE: 537.39 mGy.cm FINDINGS: Brain parenchyma: There is age related involutional change noting moderate subcortical and periventricular microangiopathic disease. There is no evidence of hemorrhage, mass effect, or acute territorial ischemia noting angiographic phase technique. There is no evidence of enhancing mass lesion on the angiogram phase images. The ventricles, sulci, and cisterns are prominent secondary to involutional change. Blanchard-white matter differentiation is preserved. No extra- axial fluid collection is seen. Thoracic aorta: Visualized portions of the thoracic aorta are normal in caliber. The aortic arch demonstrates standard 3-vessel anatomy. Right carotid arterial system: The right common carotid artery is widely patent, as are the right internal and external carotid arteries. Calcified plaque is noted in the carotid bulb. Left carotid arterial system: The left common carotid artery is widely patent, as are the left internal and external carotid arteries. Minimal calcified plaque is seen in the carotid bulb. Vertebral arteries: The vertebral arteries are widely patent bilaterally and codominant. Subclavian arteries: Widely patent bilaterally. Intracranial vasculature: There is atherosclerotic calcification of the cavernous carotid and vertebral arteries. The internal carotid arteries are patent at the skull base, as are the anterior and middle cerebral arteries bilaterally. The vertebrobasilar system and posterior cerebral arteries are widely patent. The vertebral arteries are codominant. There is no aneurysm, high-grade stenosis, or focal vessel cut off seen throughout the intracranial circulation. Jugular veins: Patent bilaterally. Dural sinuses: Patent. Lung apices: Partially visualized upper lobe lung parenchyma appears clear. Soft tissues: The visualized pharyngeal soft tissues are normal in appearance noting angiographic phase technique. The oropharyngeal airway appears widely patent. The salivary and thyroid glands are normal in appearance. No cervical lymphadenopathy is seen. Skeletal structures: The skeletal structures are osteopenic. The calvarium appears intact. The cervical spine is maintained noting multilevel spondylosis. No lytic or blastic lesion is seen. Orbits: The bony orbits are intact. Orbital contents are normal as visualized noting bilateral ocular lens implants. Sinuses and mastoids: The paranasal sinuses are clear. There is trace right mastoid effusion. The left mastoid air cells are well pneumatized. IMPRESSION: 1. There is no evidence of hemorrhage, mass effect, or acute territorial ischemia noting angiographic phase technique. 2. Unremarkable CT angiogram of the brain. 3. Unremarkable CT angiogram of the neck. ACT 112: Negative or not required by law. Electronically signed by: Ender Mills M.D. 12/09/2022 9:02 PM Neck CTA 12/09/22 20:12 CT ANGIOGRAM OF THE BRAIN; CT ANGIOGRAM OF THE NECK CLINICAL HISTORY: Change in mental status. Stroke like symptoms. COMPARISON STUDY: Unenhanced CT of the brain performed the same day 12/09/2022. TECHNIQUE: Follow-up the IV administration of 109 of Optiray 320, CT angiogram of the head and neck was performed from the aortic arch to the vertex. Images are reviewed in the axial, sagittal, and coronal planes. 3-D MIPS images are created and assessed. IV contrast was administered without complication. All measurements were calculated based on NASCET criteria. A dose lowering technique was utilized adhering to the principles of ALARA. CT DOSE: 537.39 mGy.cm FINDINGS: Brain parenchyma: There is age related involutional change noting moderate subcortical and periventricular microangiopathic disease. There is no evidence of hemorrhage, mass effect, or acute territorial ischemia noting angiographic p hase technique. There is no evidence of enhancing mass lesion on the angiogram phase images. The ventricles, sulci, and cisterns are prominent secondary to involutional change. Blanchard-white matter differentiation is preserved. No extra- axial fluid collection is seen. Thoracic aorta: Visualized portions of the thoracic aorta are normal in caliber. The aortic arch demonstrates standard 3-vessel anatomy. Right carotid arterial system: The right common carotid artery is widely patent, as are the right internal and external carotid arteries. Calcified plaque is noted in the carotid bulb. Left carotid arterial system: The left common carotid artery is widely patent, as are the left internal and external carotid arteries. Minimal calcified plaque is seen in the carotid bulb. Vertebral arteries: The vertebral arteries are widely patent bilaterally and codominant. Subclavian arteries: Widely patent bilaterally. Intracranial vasculature: There is atherosclerotic calcification of the ca vernous carotid and vertebral arteries. The internal carotid arteries are patent at the skull base, as are the anterior and middle cerebral arteries bilaterally. The vertebrobasilar system and posterior cerebral arteries are widely patent. The vertebral arteries are codominant. There is no aneurysm, high-grade stenosis, or focal vessel cut off seen throughout the intracranial circulation. Jugular veins: Patent bilaterally. Dural sinuses: Patent. Lung apices: Partially visualized upper lobe lung parenchyma appears clear. Soft tissues: The visualized pharyngeal soft tissues are normal in appearance noting angiographic phase technique. The oropharyngeal airway appears widely patent. The salivary and thyroid glands are normal in appearance. No cervical lymphadenopathy is seen. Skeletal structures: The skeletal structures are osteopenic. The calvarium appears intact. The cervical spine is maintained noting multilevel spondylosis. No lytic or blastic lesion is seen. Orbits: The bony orbits are intact. Orbital contents are normal as visualized noting bilateral ocular lens implants. Sinuses and mastoids: The paranasal sinuses are clear. There is trace right mastoid effusion. The left mastoid air cells are well pneumatized. IMPRESSION: 1. There is no evidence of hemorrhage, mass effect, or acute territorial ischemia noting angiographic phase technique. 2. Unremarkable CT angiogram of the brain. 3. Unremarkable CT angiogram of the neck. ACT 112: Negative or not required by law. Electronically signed by: Ender Mills M.D. 12/09/2022 9:02 PM Diagnostic Findings EKG as per my interpretation : Rate 95, NSR, normal axis, no ischemia
[2022-12-10 00:23] LABS: Lyme Ab IgG w/WB Rflx Negative (Negative); Lyme Ab IgM w/WB Rflx Negative (Negative)
[2022-12-10] MEDS ORDERED: PROMETHAZINE HCL 6.25 MG in SODIUM CHLORIDE 0.9% 50 ML IV PRN (01:41)
[2022-12-10] MEDS ORDERED: ACETAMINOPHEN 325 MG TAB PO PRN (01:41)
[2022-12-10] MEDS ORDERED: HEPARIN SOD 5,000 UNIT/0.5 ML VIAL SQ SCH ×2 (06:00)
[2022-12-10] MEDS: SODIUM CHLORIDE 0.9% 1000ML 1,000 ML IV SCH (06:02)
--- NOTE | 2022-12-10 07:18 | Magnetic Resonance Report ---
MR brain wo con CLINICAL HISTORY: amnesia TECHNIQUE: Multiplanar and multisequence MR images of the brain were obtained without intravenous con trast. Comparison: None available at the time of this dictation. FINDINGS: No abnormal restricted diffusion is identified. Foci of T2 and FLAIR hyperintensity are noted in the paraventricular areas consistent with chronic small vessel ischemic disease. Ex vacuo ventriculomegal y and sulcal enlargement is noted compatible with diffuse encephalomalacia. No mass is seen. There is no mass effect or midline shift. There is no evidence of acute intraparenchymal hemorrhage. No extra axial fluid collections are seen. The corpus callosum, pituitary gland, and cerebellar tonsils appea r grossly unremarkable. Flow voids of the major intracranial arterial vessels are identified. The imaged portions of the para nasal sinuses, mastoid air cells, and orbits are unremarkable. IMPRESSION: Chronic volume loss and age related white matter changes without evidence of acute abnormality. ACT 112: Negative or not required by law. Electronically signed by: Chidi Avilez M.D. 12/10/2022 7:17 AM
--- NOTE | 2022-12-10 08:03 | Neurology Consultation ---
Date of Consultation December 10, 2022 Assessment & Plan (1) Acute confusion: (2) Transient global amnesia: (3) Chronic cerebral ischemia: (4) Vascular dementia: (5) Hypertension: Plan this patient had an episode of confusion/ memory loss December 09, triggered when he forgot how to get to a certain store in the afternoon and then in his frustration became worse. he could not recall the events of the morning and the afternoon very accurately, even till today. Otherwise, his neurologic examination is unremarkable and he has no focal findings, meningeal signs, or encephalopathy. MRI of the brain shows no acute stroke. However, the MRI shows significant old small vessel ischemia as well as generalized cerebral atrophy. Given his history of some memory issues over the last few years I think he has an early vascular dementia. Overall, I would call this a transient global amnesia ( on the background of a vascular dementia), as opposed to a TIA. There is no evidence for a seizure. He has several risk factors for stroke including history of previous cigarette smoking, hypertension, dyslipidemia, and pre diabetes. He is not taking 81mg aspirin regularly. History of previous concussions playing football may have led to some of his current MRI findings. Recommendations: 1. Given the extent of small vessel ischemic disease seen on MRI, discontinue 81 mg aspirin, and initiate 75 mg clopidogrel daily. 2. I see no reason to order any additional tests including EEG. 3. control stroke risk factors, as we are doing. aim for a mean arterial blood pressure of 95. 4. I can follow as an outpatient ( 2 weeks with PA) . Please contact me if I can be of further assistance with this case. Overall, I spent a total of 120 minutes with this case including review of records, review of MRI films, direct evaluation the patient at bedside, and di scussion of the case with the patient and RN at bedside, the patient's via telephone, and Dr. Swanson including differential diagnosis and treatment options. History of Present Illness Reason for Consultation: Patient is a 77-year-old, who I was asked to see at the request of Dr. Draper, for neurologic consultation regarding acute memory loss Requesting Physician: Dr. Draper Attending Physician: Amanda Swanson, DO History of Present Illness This patient has a history of dyslipidemia, hypertension, and pre diabetes on amlodipine, simvastatin, and 81 mg aspirin tablet daily. patient claims it is not take the aspirin "all that regularly". He has no history of stroke or cardiac disease. He is a former smoker quitting in 1977. He claims that he had "multiple concussions" playing football in the 60s. The patient moved to the [facility] from [place] in the summer of 2021. 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 this patient believes that he has had "memory issues" for probably for several years. I spoke to the patient's spouse via telephone and she tells me that over time he will have some episodes of forgetfulness but they are mild and nonspecific. the patient tells me that he woke on the morning December 09 Somewhere around 6 or 7 in the morning, feeling normal. He had coffee but no food. This is typical for him. Apparently, the patient remembers that he had to do errands and went out on an errand ( to go to [employer]), forgot how to get there, became very frustrated, and went home. Actually, patient's said that the patient did go to [employer] in the morning of December 09 and completed is errands very well. He got back home around noon and was himself. The patient's then went out with a friend and the patient told her that he was going to go to [employer] to pickup avendano. Apparently, the patient left in the car and this is the episode where he got lost and became frustrated and came home. She found him very frustrated and found that he could not remember events of the morning and the fact that the maintenance journeyman came. The patient had no headache before, during, or after this event. He had no speech problems or lightheadedness/dizziness. He had no weakness or numbness in the limbs and no gait problems. He had no incontinence of urine. He arrived to the emergency room December 09 at 5:20 p.m., with a temperature of 36.4, pulse 100, respiratory rate 16, blood pressure 120/82, and O2 saturation 97%. His neurologic examination was entirely within normal limits with no focal findings, meningeal signs, or encephalopathy. He was not confused although his memory for events of that day was somewhat poor. CBC showed slight anemia. Chem profile was normal although glucose was 111. TSH was 1.7. urinalysis was unremarkable and Lyme antibodies were negative. Chest x-ray was unremarkable. CT scan of the head showed no acute changes. CT angiography of the head and neck were unremarkable with no significant vascular stenoses or anomalies. An MRI of the brain showed a moderate generalized atrophy with hydrocephalus ex vacuo. In addition there was moderate to extensive old small vessel ischemic disease diffusely in the white matter. I reviewed these films. This morning, blood pressure is 135/92 and he is afebrile. Pulse is 110. he feels back to baseline it does not believe he has any new memory problems for today. He still has sketchy recall of yesterday. Allergies Allergy/AdvReac Type Severity Reaction Status Date / Time lisinopril Allergy FACE EDEMA Verified 12/10/22 01:16 Home Medications Medication Instructions Recorded Confirmed Type amlodipine 10 mg tablet 10 mg PO DAILY 12/09/22 12/09/22 History simvastatin 20 mg tablet 20 mg PO DAILY 12/09/22 12/09/22 History aspirin 81 mg tablet,delayed 81 mg PO DAILY 12/10/22 12/10/22 History release Patient History Medical History (Updated 12/10/22 @ 09:26 by Regan Almeida MD) Dyslipidemia Hypertension Pre-diabetes Surgical History (Updated 12/10/22 @ 07:59 by Regan Almeida MD) History of cataract surgery Family History (Updated 12/10/22 @ 09:23 by Regan Almeida MD) Mother , age 86 with dementia Stroke Dementia Father , age 66 of heart disease Coronary heart disease Heart disease Social History Smoking Status: Former smoker Tobacco Type: Cigarettes Age Started Using Tobacco: 18; Age Quit Using Tobacco: 33; packs per day: 1; Second Hand Exposure: No; Hx Alcohol Use: No Hx Substance Use: No Preferred Language: Czech Communication Ability: Effective State Federal Relations Deputy Director Required: Yes Beliefs That Will Affect Care: None Current Living Situation: Spouse Current Living Situation Comment: lives in a one story home current occupational status: retired 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 Feels Safe at Home: Yes Assistive Devices: None Review of Systems Constitutional: no fever, no fatigue and no weakness Eyes: no diplopia, no eye pain and no worsening vision Ear, Nose, Mouth, Throat: no ear pain, no tinnitus, no hearing loss, no dizziness, no snoring, no hoarseness and no dysphagia Respiratory: no cough and no dyspnea Cardiovascular: no chest pain, no palpitations and no lightheadedness Gastrointestinal: no abdominal pain, no nausea and no vomiting Musculoskeletal: no back pain, no neck pain, no radicular pain, no joint pain and no myalgia Integumentary: no rash and no lesions Neurologic: + memory loss; no gait abnormality, no localized weakness, no generalized weakness, no tingling, no numbness, no tremor(s), no abnormal movements, no headache(s), no abnormal speech and no confusion Psychiatric: no depression, no irritability, no anxiety, no difficulty concentrating, no confusion and no hallucinations Endocrine: no fatigue and no flushing Hematologic / Lymphatic: no easy bleeding and no easy bruising Allergy / Immunological: no urticaria and no problem reported Exam (Neuro) Physical Exam: The patient is right-handed. The patient is awake, alert, and attentive. Speech is normal without any aphasia or dysarthria. The patient can name objects, repeat phrases, and has normal spontaneous speech. Mentation and thought processes are intact, with orientation to person, place and time, and normal fund of knowledge. Attention and concentration are normal. Mood and affect are normal and appropriate. General appearance and grooming are normal. short and long-term memory seem reasonable to conversation except for events of December 09 Pupils are 4 mm bilaterally and reactive to light. Extraocular eye muscles are intact without nystagmus. Visual acuity and visual darling seem normal grossly to confrontation. There are no deficits to sensation in the face in all 3 distributions of the fifth cranial nerve bilaterally. Corneal reflexes are positive bilaterally. Facial strength and symmetry was normal bilaterally. Hearing seems normal bilaterally. Palate moves well without asymmetry. There is normal sternocleidomastoid and trapezius (shoulder shrug) strength bilaterally. Tongue is midline with good strength bilaterally. Neck has a full range of motion without discomfort. There are no cervical bruits bilaterally. There are no cranial or ocular bruits. Heart is without murmur. There is a regular rhythm and rate. Cervical, thoracic, and lumbar spine are nontender to palpation. Gait is narrow based, with good arm swing, turns, and stance. Balance is normal eyes open or closed. With outstretched arms there is no drift. There are no resting, postural, or action tremors. There is no ataxia with finger to nose testing. There is good facility in the hands. No other abnormal involuntary movements are noted. Motor strength is 5/5 diffusely in the arms bilaterally including deltoids, biceps, triceps, brachioradialis, wrist flexors and extensors, network technical analyst, and intrinsic hand muscles. Motor strength is 5/5 diffusely in the legs bilaterally including hip flexors, quadriceps, hamstrings, gastrocnemius, tibialis anterior, tibialis posterior, and Peroneii muscles. Toe extensors are normal and there is good bulk in the extensor digitorum brevis muscles bilaterally. The limbs have good tone without rigidity or spasticity. There is no atrophy noted in the muscles. Muscle bulk is normal, there is no tenderness to palpation, no myotonia to percussion, and no fasciculations seen. Sensory examination is intact to touch and pin throughout all 4 limbs diffusely. Reflexes are 2/4 in the biceps, triceps, brachioradialis, and quadriceps tendons bilaterally. Achilles tendon reflexes are 1/4 bilaterally. There is no clonus bilaterally. Toes are downgoing with plantar stimulation bilaterally. Peripheral pulses are present and of normal quality distally in all 4 limbs. There is no peripheral edema noted in the limbs. Results & Data ([facility]) Vital Signs (Past 12 Hours) Vital Signs Temp Pulse Resp BP BP Pulse Ox O2 Del Method 12/10/22 07:21 36.4 C L 110 H 135/92 98 Room Air 12/10/22 04:00 36.8 C 97 H 18 126/76 97 Room Air 12/10/22 05:06 36.8 C 98 H 18 129/87 98 Room Air 12/10/22 01:37 20 Room Air 12/09/22 22:05 81 20 136/86 97 Room Air 12/09/22 20:24 79 20 147/95 H 97 Room Air 12/09/22 20:24 Room Air PG Care Time/CCT Total # of Minutes Spent Total Time Spent with Patient: Total time spent is greater than 50% in coordination of care (as documented) at patient's floor/unit and/or counseling patient: Coding Level of Care Code 95625 INT INP/OBS CARE 3/75MIN Diagnoses Acute confusion R41.0 Transient global amnesia G45.4 Chronic cerebral ischemia I67.82 Vascular dementia F01.50 Hypertension I10 Time Spent (min) 120 Comment add modifiers as able
[2022-12-10] MEDS ORDERED: ENOXAPARIN INJ 40 MG/0.4 ML SYR SQ SCH (09:00)
[2022-12-10] MEDS ORDERED: ASPIRIN 81 MG ECTAB PO SCH (09:00)
[2022-12-10] MEDS ORDERED: amLODIPine BESYLATE 5 MG TAB PO SCH (09:00)
[2022-12-10] MEDS ORDERED: SIMVASTATIN 20 MG TAB PO SCH (09:00)
[2022-12-10] MEDS ORDERED: INFLUENZA VACCINE HIGH DOSE PF 65+ 0.7 ML SYR IM ONE (09:00)
[2022-12-10 10:59] LABS: Basophils # (auto) 0.03 K/uL (0-0.2); Basophils % (auto) 0.5 %; Eosinophils # (auto) 0.04 K/uL (0-0.50); Eosinophils % (auto) 0.6 %; Hematocrit (blood only) 38.9 % (42.0-52.0); Hemoglobin 13.1 g/dl (14.0-18.0); Immature Granulocytes # (auto) 0.02 K/uL (0.01-0.20); Immature Granulocytes % (auto) 0.3 %; Lymphocytes # (auto) 1.36 K/uL (1.2-3.4); Lymphocytes % (auto) 21.3 %; Mean Corpuscular Hemoglobin 29.3 pg (25.0-34.0); Mean Corpuscular Hgb Conc 33.7 g/dL (32.0-36.0); Mean Platelet Volume 9.4 fL (9.4-12.4); Monocytes # (auto) 0.54 K/uL (0.11-0.59); Monocytes % (auto) 8.5 %; Neutrophils % (auto) 68.8 %; Platelet Count 326 K/uL (130-400); RDW Coefficient of Variation 13.1 % (11.5-14.5); RDW Standard Deviation 41.3 fL (36.4-46.3); Red Blood Count 4.47 M/uL (4.70-6.10); White Blood Count 6.39 K/ul (4.8-10.8)
[2022-12-10 11:26] LABS: BUN Creatinine Ratio 12.5 (10-20); Calcium 9.6 mg/dl (8.5-10.1); Creatinine Clr Calc Pharmacy 65.5 ml/min; Est GFR (African American) 88.6 ml/min; Est GFR (Non-African American) 76.5 ml/min; Potassium 4.3 mmol/L (3.5-5.1)
--- NOTE | 2022-12-10 11:31 | Discharge Summary ---
Discharge Summary Date of Service December 10, 2022 Notes For Next Care Provider monitor for mental status changes. Medication Changes From Visit STOP aspirin 81mg PO daily START Plavix 75mg PO daily Admission HPI Per Admitting Provider History obtained from patient, family, and records. Medical history significant for hypertension, hyperlipidemia, prediabetes, chronic anemia (baseline hemoglobin of 12 from 2021 ), past tobacco/alcohol abuse as per patient. Patient noted to be forgetful and confused yesterday. Patient got lost going to the [employer] to get a sink strainer as per . He forgot a visit from a kitchen awning installer at their home in early a.m. No headache, no chest pain, no SOB. Episode of forgetfulness in April, while preparing to move from [place] to [place] which attributed to the stress of moving. Patient brought to the ER for evaluation. 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 He forgot how to get to a certain store in the afternoon, became frustrated and worse. He was unable to recall details of the event for approximately 24 hours. Hi neurologic exam was unremarkable and he has no focal findings, meningeal signs or encephalopathy. MRI brain revealed no acute stroke. However, the MRI revealed small vessel disease and therefore ASA 81mg was stopped and Plavix 75 mg daily was started out of concern for developing vascular dementia. Hi episode was classified as a transient global amnesia. At time of discharge, he was mentating and ambulating clearly and at his baseline, respectively. He was discharged home in stable condition with close PCP followup recommended. Discharge Exam CONSTITUTIONAL: WNWD, vitals as above, generally well-appearing, NAD EYES: normal conjunctivae, no scleral icterus ENT: external ear and nose normal, NECK: trachea midline RESPIRATORY: clear to auscultation bilaterally, no crackles, rales or wheezes, normal respiratory effort CARDIOVASCULAR: regular rate and rhythm, S1 and 2 heard without murmurs, gallops or rubs, no JVD, no peripheral edema, CHEST: inspection of chest was normal GASTROINTESTINAL: soft, nontender, ND, no guarding MUSCULOSKELETAL: strength 5/5 throughout, head is normocephalic and atraumatic, ambulating at his baseline. SKIN: warm and dry, NEUROLOGIC: No facial palsy, no dysarthria. Touch, pain and proprioception normal. CN 2-12 grossly intact, no sensory deficit, normal cognition, normal speech, no tremor PSYCHIATRIC: alert cooperative and oriented to person, place and time. Euthymic mood, makes good eye contact, language grossly intact, recent and remot e memory grossly intact. Updated Medication List Medication Instructions Recorded Confirmed Type amlodipine 10 mg tablet 10 mg PO DAILY 12/09/22 12/09/22 History simvastatin 20 mg tablet 20 mg PO DAILY 12/09/22 12/09/22 History clopidogrel 75 mg tablet 75 mg PO DAILY #30 tabs 12/10/22 Rx Hospital Stay Data Consultations 12/09/22 21:53 ED Decision to Admit Stat 12/10/22 01:41 Consult Neurology Routine Diagnostic Imagining Performed 12/09/22 17:24 CT head/brain wo con Stat 12/09/22 20:12 CT angio head w con Stat CT angio neck with con Stat 12/09/22 23:32 MRI Brain [MR brain wo con] Stat Pending Results Patient Have Any Pending Studies at Discharge: No Discharge Instructions Given to Patient (Per Discharging Provider) Please take all medications as instructed on discharge list below. You underwent a brain MRI that revealed microvascular disease. This is thought to have contributed to your episode yesterday and ongoing issues with short term memory loss. Episodes like this may continue to occur despite changing medication. Please discuss these findings with your primary care provider on followup within a week. It was a pleasure taking care of you! Please call if you have any questions or problems. You can reach a [facility] hospitalist on duty at [facility] 24 hours a day by calling [phone]. Take care of yourself. Amanda Swanson, [facility] Hospitalist Total Time Total Time Spent Total Time Spent (In Minutes): 60
--- NOTE | 2022-12-11 04:35 | Electrocardiogram Report ---
Test Reason : Blood Pressure : / mmHG Vent. Rate : 094 BPM Atrial Rate : 094 BPM P-R Int : 168 ms QRS Dur : 080 ms QT Int : 372 ms P-R-T Axes : 051 068 064 degrees QTc Int : 465 ms Poor data quality, interpretation may be adversely affected Normal sinus rhythm Normal ECG No previous ECGs available Confirmed by Solo Palumbo ([id number]) on 12/11/2022 4:34:55 AM Referred By: REFERRED SELF Confirmed By:Solo Palumbo
== END 2022-12-10 12:16 | disposition home or self-care (01) ==
LOC: ED 17:07 → 2N 17:07